=== PATIENT | male | born 1960 | race Two or more races ===

== ENCOUNTER → 2017-11-20 | Outpatient (CLI) | payer MEDICAID, OTHER | LOC: RAD 16:50 | PROVIDERS: ATTEND Nurse Practitioner Family | DX: M25.512 Pain in left shoulder (principal) ==

== ENCOUNTER → 2020-05-16 | Outpatient (CLI) | payer MEDICAID | END | disposition home or self-care (01) | LOC: CFH 09:45 | PROVIDERS: ATTEND Neurological Surgery | DX: I67.82 Cerebral ischemia (principal); I65.23 Occlusion and stenosis of bilateral carotid arteries; G31.9 Degenerative disease of nervous system, unspecified; I62.00 Nontraumatic subdural hemorrhage, unspecified | CPT/HCPCS: 70450 ==